=== PATIENT | male | born 1980 | race Caucasian/White ===

== ENCOUNTER → 2017-11-04 | Outpatient (CLI) | payer OTHER | LOC: LAB EV 15:00 → LAB SHORT 15:00 | DX: L02.91 Cutaneous abscess, unspecified (principal) | CPT/HCPCS: 87070; 87205 ==

== ENCOUNTER 2019-11-14 07:24 | Day surgery (SDC) | payer OTHER ==
[~2019-11-14] VITALS: Ht 182.9 cm; Wt 107.2 kg
[~2019-11-14 07:24] MED LIST: ALBU8HFA2 INH; ESCI10 PO; QVAR REDIHALE10.6 G2; TRAZ50 PO; TRELEGY ELLIPT1 EACH
--- NOTE | 2019-11-14 09:03 | NUR ---
11/14/19 0903 Maxine Herr PLEDGETS SOAKED IN 30 MG EPI FOR PACKING.
--- NOTE | 2019-11-14 13:05 | NUR ---
11/14/[address] NOTIFIED THAT BP WAS IN THE 70/40'S AND HR 42-50. DR MEEHAN CAME IN AND TALKED TO THE PATIENT. NO ORDERS GIVEN.
== END 2019-11-14 13:51 | disposition home or self-care (01) ==
LOC: ORSCSDS 07:24
PROVIDERS: Otolaryngology
PROC: 09TV4ZZ Resection of Left Ethmoid Sinus, Percutaneous Endoscopic Approach (ICD-10-PCS; principal; 2019-11-14 08:30)
PROC: 09TU4ZZ Resection of Right Ethmoid Sinus, Percutaneous Endoscopic Approach (ICD-10-PCS; principal; 2019-11-14 08:30)
PROC: 8E09XBZ Computer Assisted Procedure of Head and Neck Region (ICD-10-PCS; principal; 2019-11-14 08:30)
DX: J32.8 Other chronic sinusitis (principal); J34.2 Deviated nasal septum; J34.3 Hypertrophy of nasal turbinates
CPT/HCPCS: C2625; J1100; J2250; J2405; J2704; J2765; J3010; J7120

== ENCOUNTER → 2020-01-22 | Outpatient (CLI) | payer OTHER | END | disposition home or self-care (01) | LOC: LAB 10:45 | DX: J32.4 Chronic pansinusitis (principal) | CPT/HCPCS: 87070; 87077; 87186 ==